=== PATIENT | male | born 1945 | race Caucasian/White ===

== ENCOUNTER 2016-11-13 19:00 | Emergency (ER) | payer OTHER ==
[2016-11-13 16:03] LABS: WBC (NOT ORDERED) (RFLEX) 0 (0-5)
[2016-11-13 16:07] LABS: BASOPHILS 0.5 %; BASOPHILS ABSOLUTE 0.04 10/3/uL (0.0-0.16); EOSINOPHILS 0.8 %; EOSINOPHILS ABSOLUTE 0.07 10/3/uL (0.0-0.53); ER CBC TAT 0 Hrs 05 Mins; HEMATOCRIT 43.7 % (40.0-51.0); HEMOGLOBIN 14.6 g/dL (13.6-17.8); IMMATURE GRANULOCYTES 0.1 %; IMMATURE GRANULOCYTES ABSOLUTE 0.01 10/3/uL (0.0-0.11); LYMPHOCYTES 9.4 %; LYMPHOCYTES ABSOLUTE 0.82 10/3/uL (0.67-4.30); MEAN CORPUS HGB CONC 33.4 g/dL (32.0-36.0); MEAN CORPUSCULAR HEMOGLOB 31.7 pg (26.0-34.0); MEAN CORPUSCULAR VOLUME 94.8 fL (80-100); MEAN PLATELET VOLUME 11.7 fL (9.2-13.0); MONOCYTES 9.2 %; NEUTROPHILS ABSOLUTE 6.97 10/3/uL (2.02-8.40); PLATELET COUNT 150 10/3/uL (150-400); RBC DISTRIBUTION WIDTH 13.2 % (12.0-16.0); RED CELL COUNT 4.61 10/6/uL (4.7-6.1); WHITE BLOOD CELLS 8.7 10/3/uL (4.5-10.5)
[2016-11-13 16:08] LABS: MANUAL DIFF NO %
[2016-11-13 16:17] LABS: ASCORBIC ACID (UR NOT ORDER) NEG (NEG); BILIRUBIN, URINE NEGATIVE (NEG); ER URINALYSIS TAT 0 Hrs 15 Mins; KETONE, URINE NEGATIVE (NEG); LEUKOCYTE ESTERASE(NOT OR NEG (NEG); NITRITE (URINE) NEG (NEG)
[2016-11-13 16:23] LABS: A/G RATIO 1.1 (0.7-1.9); ALBUMIN 3.7 G/DL (3.5-5.0); ALKALINE PHOSPHATASE 75 U/L (45-117); BUN (BLOOD UREA NITROGEN) 29 MG/DL (6-23); CALCIUM, SERUM 10.4 MG/DL (8.5-10.4); CHLORIDE, SERUM 103 MMOL/L (96-112); CO2 (CARBON DIOXIDE) 28 MMOL/L (24-34); CREATININE 1.41 MG/DL (0.70-1.30); GFR AFRICAN AMERICAN 58 ML/MIN (>=60); GFR NON AFRICAN AMERICAN 50 ML/MIN (>=60); GLOBULIN 3.5 G/DL (2.5-4.1); GLUCOSE, SERUM 102 MG/DL (60-99); POTASSIUM, SERUM 4.5 MMOL/L (3.5-5.3); SGOT(AST) 16 U/L (5-40); SGPT(ALT) 14 U/L (5-65); SODIUM, SERUM 139 MMOL/L (135-148); TOTAL BILIRUBIN 1.3 MG/DL (0-1.2); TOTAL PROTEIN 7.2 G/DL (6.0-8.5)
[~2016-11-13 19:00] MED LIST: ASAB PO; COREG6 PO; FISH-EPA1000 MG PO; JANTOVEN3 MG PO; JANTOVEN4 MG PO; JANTOVEN6 MG PO; L20 PO; PRAVACHOL40 MG PO; PRIN5 PO; SPIRO25 PO
== END 2016-11-13 19:15 | disposition home or self-care (01) ==
LOC: ER 19:00
PROVIDERS: Emergency Medicine
DX: E86.0 Dehydration (principal); R19.7 Diarrhea, unspecified; Z98.61 Coronary angioplasty status; I10 Essential (primary) hypertension; Z79.82 Long term (current) use of aspirin; Z79.899 Other long term (current) drug therapy; Z79.01 Long term (current) use of anticoagulants
CPT/HCPCS: 80053; 81001; 83690; 85025; 93005; 96374; 99284; J1980; J2405

== ENCOUNTER 2017-01-12 09:23 | Day surgery (SDC) | payer OTHER ==
--- NOTE | ~2017-01-12 | EGD ---
EGD REPORT [facility] [address] [place]. [place] [address] NAME: ELLEN BRO : [birth year] [place] [facility] [place] [id number] AGE: 71 ADM/REG DATE : 01/12/17 MR#: [id number] REPORT SERV DATE: 01/12/17 DICTATED BY: MAYRA SAMPSON DATE: 01/12/17 REPORT STATUS : Draft [facility]ANSCRIBED BY: [facility] DATE: 01/12/17 Endoscopy Center Patient Name: Ellen Bro Date of : 1945 Attending MD: MAYRA SAMPSON MD Procedure Date No Time: 01/12/2017 Procedure: Upper GI endoscopy Indications: Heme positive stool, Weight loss Referring MD: MILAGROS MC MD Medicines: as per anesthesia Complications: No immediate complications. Procedure: Pre-Anesthesia Assessment: - ASA Grade Assessment: III - A patient with severe systemic disease. After obtaining informed consent, the endoscope was passed under direct vision. Throughout the procedure, the patient's blood pressure, pulse, and oxygen saturations were monitored continuously. The GIF [id number] [id number] was introduced through the mouth, and advanced to the third part of duodenum. The upper GI endoscopy was accomplished without difficulty. The patient tolerated the procedure. Findings: The examined esophagus was normal. A small hiatus hernia was present. Localized mild inflammation characterized by erythema was found in the gastric antrum. Biopsies were taken with a cold forceps for histology. Localized moderate inflammation characterized by erythema was found in the duodenal bulb. Impression: - Normal esophagus. - Hiatus hernia. - Gastritis. Biopsied. - Duodenitis. Recommendation: - Await pathology results. Procedure Code(s): --- Professional --- 50592, Esophagogastroduodenoscopy, flexible, transoral; with biopsy, single or multiple Diagnosis Code(s): --- Professional --- K44.9, Diaphragmatic hernia without obstruction or gangrene EGD REPORT [facility] [address] [address] NAME: ELLEN BRO : [birth year] [place] [facility] [place]#: [id number] AGE: 71 ADM/REG DATE : 01/12/17 MR#: [id number] REPORT SERV DATE: 01/12/17 DICTATED BY: MAYRA SAMPSON. DATE: 01/12/17 REPORT STATUS : Draft TRANSCRIBED BY: [employer] DATE: 01/12/17 K29.70, Gastritis, unspecified, without bleeding K29.80, Duodenitis without bleeding R19.5, Other fecal abnormalities R63.4, Abnormal weight loss CPT copyright 2013 [employer]. All rights reserved. The codes documented in this report are preliminary and upon slurry worker review may be revised to meet current compliance requirements. MAYRA SAMPSON MD 01/12/2017 12:28 PM This report has been signed electronically. Number of Addenda: 0 Note Initiated On: 01/12/2017 12:06 PM Scope Withdrawal Time 0 hours 0 minutes 0 seconds [address] [id number]
--- NOTE | ~2017-01-12 | EGD ---
EGD REPORT [facility] [address] [address] NAME: ELLEN BRO : [birth year] STATUS : REG [facility]#: [id number] AGE: 71 ADM/REG DATE : 01/12/17 MR#: [id number] REPORT SERV DATE: 01/12/17 DICTATED BY: DATE: REPORT STATUS : Draft [facility]IBED BY: [facility] DATE: 01/12/17 Endoscopy Center Patient Name: Ellen Bro Date of : 1945 Attending MD: MAYRA SAMPSON MD Procedure Date No Time: 01/12/2017 Procedure: Colonoscopy Indications: Heme positive stool, Weight loss Referring MD: MILAGROS MC MD Medicines: as per anesthesia Complications: No immediate complications. Procedure: Pre-Anesthesia Assessment: - ASA Grade Assessment: III - A patient with severe systemic disease. After I obtained informed consent, the scope was passed under direct vision. Throughout the procedure, the patient's blood pressure, pulse, and oxygen saturations were monitored continuously. The PCF [id number] was introduced through the anus and advanced to the cecum, identified by appendiceal orifice and ileocecal valve. The colonoscopy was somewhat difficult due to multiple diverticula in the colon, significant looping and a tortuous colon. The patient tolerated the procedure. The quality of the bowel preparation was adequate to identify polyps. Findings: The perianal and digital rectal examinations were normal. A semi-sessile polyp was found in the sigmoid colon. The polyp was 5 mm in size. The polyp was removed with a cold biopsy forceps. Resection and retrieval were complete. Multiple small and large-mouthed diverticula were found in the sigmoid colon and in the descending colon. Internal hemorrhoids were found during endoscopy and were mild. Impression: - One 5 mm polyp in the sigmoid colon. Resected and retrieved. - Diverticulosis in the sigmoid colon and in the descending colon. - Internal hemorrhoids. Recommendation: - Await pathology results. - Repeat colonoscopy for surveillance based on pathology results. EGD REPORT [facility] [address] [address] NAME: ELLEN BRO : [birth year] STATUS : REG [facility]#: [id number] AGE: 71 ADM/REG DATE : 01/12/17 MR#: [id number] REPORT SERV DATE: 01/12/17 DICTATED BY: DATE: REPORT STATUS : Draft TRANSCRIBED BY: [employer] DATE: 01/12/17 Procedure Code(s): --- Professional --- 51422, Colonoscopy, flexible, proximal to splenic flexure; with biopsy, single or multiple Diagnosis Code(s): --- Professional --- D12.5, Benign neoplasm of sigmoid colon K64.8, Other hemorrhoids K57.30, Diverticulosis of large intestine without perforation or abscess without bleeding R19.5, Other fecal abnormalities R63.4, Abnormal weight loss CPT copyright 2013 [employer]. All rights reserved. The codes documented in this report are preliminary and upon diabetes manager review may be revised to meet current compliance requirements. MAYRA SAMPSON MD 01/12/2017 1:06 PM This report has been signed electronically. Number of Addenda: 0 Note Initiated On: 01/12/2017 12:02 PM Scope Withdrawal Time 0 hours 16 minutes 5 seconds [address] [place] [address]
== END 2017-01-12 23:59 | disposition home or self-care (01) ==
LOC: DMU 09:23
PROVIDERS: Internal Medicine Gastroenterology
PROC: 0DB68ZX Excision of Stomach, Via Natural or Artificial Opening Endoscopic, Diagnostic (ICD-10-PCS; principal; 2017-01-12 11:00)
PROC: 0DBN8ZX Excision of Sigmoid Colon, Via Natural or Artificial Opening Endoscopic, Diagnostic (ICD-10-PCS; 2017-01-12 11:00)
DX: D12.5 Benign neoplasm of sigmoid colon (principal); K64.8 Other hemorrhoids; K57.30 Diverticulosis of large intestine without perforation or abscess without bleeding; K44.9 Diaphragmatic hernia without obstruction or gangrene; I25.2 Old myocardial infarction; I10 Essential (primary) hypertension; Z79.82 Long term (current) use of aspirin; Z79.899 Other long term (current) drug therapy; Z98.890 Other specified postprocedural states; Z95.5 Presence of coronary angioplasty implant and graft
CPT/HCPCS: 88305